=== PATIENT | male | born 1960 ===

== ENCOUNTER 2024-07-03 08:05 | Day surgery (SDC) | payer OTHER ==
[2024-07-03] VITALS (12 sets, daily range): BP systolic 95–158; BP diastolic 54–96
[~2024-07-03] VITALS: Ht 170.2 cm; Wt 111.4 kg
[2024-07-03] MEDS ORDERED: Acetaminophen 500 MG Tab PO SCH ×2 (09:30→16:00)
[2024-07-03] MEDS ORDERED: Lactated Ringer's 1,000 ML IV SCH ×2 (09:30→11:10)
[2024-07-03] MEDS ORDERED: Chlorhexidine Mouth Care 15 ML UDC MT SCH (09:30)
[2024-07-03] MEDS ORDERED: Ropivacaine 0.5% HCl/Pf 123.125 MG,EPINEPHrine HCL 0.25 MG,Ketorolac Tromethamine 15 MG... INFIL SCH (09:30)
[2024-07-03] MEDS ORDERED: CeFAZolin Sodium 2,000 MG in NS 100 ML IV SCH ×2 (09:30→19:00)
[2024-07-03] MEDS ORDERED: OxyCODONE HCL 10 MG TABCR PO SCH (09:30)
[2024-07-03] MEDS ORDERED: Tranexamic Acid 100 ML IV SCH (09:34)
[2024-07-03] MEDS ORDERED: propofoL 60 ML IV ONE (10:16)
[2024-07-03] MEDS ORDERED: Midazolam HCl 1MG / ML 2ML Vial ONE (10:19)
[2024-07-03] MEDS ORDERED: propofoL 20 ML IV ONE ×2 (10:25→10:55)
--- NOTE | 2024-07-03 10:37 | NUR ---
IV PLACED BY [facility] RN STUDENT
--- NOTE | 2024-07-03 10:39 | NUR ---
History, Chart, Medications and Allergies reviewed before start of procedure. Pre-Op teaching done. Pt verbalizes understanding. Patient confirms NPO status and agrees with scheduled surgery. PT BELONGINGS PLACED IN BAG UNDER BED. PT GAVE GLASSES, SLIPPER, SWEATS, AND HAT TO AT BS.
--- NOTE | 2024-07-03 10:57 | NUR ---
DR. PENDLETON DID ADDITIONAL CLIPPING ON PT'S R KNEE AND UPPER LEG WITH A CLOSE SHAVE.
[2024-07-03] MEDS ORDERED: OxyCODONE HCL 5 MG TAB PO PRN ×2 (11:10)
[2024-07-03] MEDS ORDERED: Promethazine HCl 25 MG Tab PO PRN (11:10)
[2024-07-03] MEDS ORDERED: Magnesium Hydroxide Conc 10 ML UDC PO PRN (11:10)
[2024-07-03] MEDS ORDERED: Ondansetron HCl 2 MG / ML 2ML Vial IV PRN (11:15)
[2024-07-03] MEDS ORDERED: DiphenhydrAMINE HCL 25 MG Cap PO PRN (11:15)
[2024-07-03] MEDS ORDERED: FLU VACC TS2024-25(6MOS UP)/PF 45 MCG/0.5 ML SYRINGE IM SCH (11:15)
[2024-07-03] MEDS ORDERED: Metoclopramide HCl 5MG / ML 2ML Vial IV PRN (11:15)
[2024-07-03] MEDS ORDERED: HYDROmorphone HCl/Pf 1MG SYR IV PRN (11:15)
[2024-07-03] MEDS ORDERED: Phenylephrine HCl 100 MCG/ML-NS 10MLSYR (1MG/10ML) ONE (11:18)
[2024-07-03] MEDS ORDERED: Bisacodyl 10 MG Supp PR PRN (11:20)
[2024-07-03] MEDS ORDERED: ePHEDrine Sulfate 50 MG/ML 1ML Injection ONE (11:22)
[2024-07-03] MEDS ORDERED: Ketorolac Tromethamine 30mg Vial ONE (13:18)
[2024-07-03] MEDS ORDERED: ACET500 PO (17:05)
[2024-07-03] MEDS ORDERED: ASPI81CH PO (17:06)
[2024-07-03] MEDS ORDERED: OXYC5 PO (17:06)
--- NOTE | 2024-07-03 17:30 | NUR ---
DISCHARGE EATING, DRINKING, & VOIDED. AMBULATED IN HALLWAY. PAIN WELL CONTROLLED. WANTS TO GO HOME. DECLINES WC OUT HE HAS HIS PWESONAL SCOOTER w/ HIM THAT SPOUSE BROUGHT TO HIM. PT IS IMPULSIZE, INTERRUPTS WHEN TRYING TO EDUCATE. [employer]ACK SENT.
[2024-07-03] MEDS ORDERED: Ketorolac Tromethamine 15mg Vial IV SCH (18:00)
[2024-07-03] MEDS ORDERED: Docusate Sodium 100 MG Cap PO SCH (21:00)
[2024-07-04] MEDS ORDERED: Aspirin 81 MG Chew PO SCH (09:00)
== END 2024-07-03 17:50 | disposition home or self-care (01) ==
LOC: ORSCMMR 08:05 → ORD 10:15 → ORSCMMR 13:00 → EDSEX 13:00 → SURS 13:25 → ORSCMMR 17:50
PROVIDERS: Orthopaedic Surgery
PROC: 8E0Y0CZ Robotic Assisted Procedure of Lower Extremity, Open Approach (ICD-10-PCS; principal; 2024-07-03 13:00)
PROC: 0SRC0JA Replacement of Right Knee Joint with Synthetic Substitute, Uncemented, Open Approach (ICD-10-PCS; principal; 2024-07-03 13:00)
DX: M17.11 Unilateral primary osteoarthritis, right knee (principal); Z87.891 Personal history of nicotine dependence; G47.33 Obstructive sleep apnea (adult) (pediatric); E66.9 Obesity, unspecified; Z68.38 Body mass index [BMI] 38.0-38.9, adult
CPT/HCPCS: 27447; 0055T; 73560-RT; A9270; C1713; C1776; J0171; J0690; J0735; J1885; J2250; J2371; J2405; J2704; J2795; J7120